=== PATIENT | female | born 1965 | race Caucasian/White ===

== ENCOUNTER 2020-08-24 19:35 | Emergency (ER) | payer OTHER ==
[~2020-08-24] VITALS: Ht 147.3 cm; Wt 53.2 kg
[2020-08-24 19:46] VITALS: TEMP 97.8
[2020-08-24 20:17] LABS: BASO # 0.1 (0.0-0.2); BASO % 1.2 % (0.0-2.0); EOS # 0.1 (0.0-0.7); EOS % 0.8 % (0-4.0); GRAN % 52.7 % (42.2-75.2); HEMATOCRIT 41.2 % (37.0-47.0); HEMOGLOBIN 13.2 g/dl (12.5-16.0); LYMPH # 3.5 (1.2-3.4); LYMPH % 36.9 % (20.0-51.0); MEAN CELL VOLUME 90 fl (80.0-100.0); MEAN CORPUSCULAR HEMOGLOBIN 29 pg (27.0-31.0); MEAN CORPUSCULAR HGB CONC 32 g/dl (33.0-37.0); MEAN PLATELET VOLUME 10.2 fl (7.4-10.4); MONO # 0.8 (0.1-0.6); MONO % 8.2 % (1.7-9.3); PLATELET COUNT 416 K/mm3 (130-400); RED BLOOD COUNT 4.59 M/mm3 (4.10-5.30); REDCELL DISTRIBUTION WIDTH-CV 12.5 % (11.5-14.5)
[2020-08-24 20:23] LABS: PROTHROMBIN TIME 11.4 SECONDS (9.7-12.8)
[2020-08-24 20:28] LABS: ALANINE AMINOTRANSFERASE 17 U/L (4-34); ALBUMIN 4.6 gm/dL (3.5-5.0); ALKALINE PHOSPHATASE 81 U/L (50-136); ANION GAP 9 mmol/L (7-16); AST,SGOT 29 U/L (15-37); BILIRUBIN,TOTAL 0.6 mg/dL (0.0-1.0); BLOOD UREA NITROGEN 19 mg/dL (7-17); CALCIUM 9.9 mg/dL (8.4-10.2); CARBON DIOXIDE 28 mmol/L (22-30); CHLORIDE 99 mmol/L (98-107); CREATININE, serum 0.91 (0.52-1.25); GLUCOSE 99 mg/dL (74-106); LIPASE 165 U/L (23-300); POTASSIUM 3.8 mmol/L (3.4-5.0); SODIUM 137 mmol/L (137-145); TOTAL PROTEIN 7.8 gm/dL (6.4-8.2)
[2020-08-24 20:35] LABS: D-DIMER < 200.00 ng/mLDDu (200-230)
[2020-08-24 20:39] LABS: TROPONIN-I < 0.012 ng/mL (0.000-0.035)
[2020-08-24] MEDS ORDERED: PRINIVIL5 MG PO (20:47)
[2020-08-24] MEDS ORDERED: HCTZ 25MG TAB25 MG PO (20:48)
[2020-08-24] MEDS ORDERED: KLOR-CON SPRIN10 MEQ PO (20:48)
[2020-08-24] MEDS ORDERED: SYNTHROID0.05 MG/TA PO (20:50)
[2020-08-24] MEDS ORDERED: ATIVAN 0.50.5 MG/TAB PO (20:51)
[2020-08-25 00:13] VITALS: BP 106/72; PULSE 91
== END 2020-08-25 00:13 | disposition home or self-care (01) ==
LOC: COL.ER 19:35
PROVIDERS: Emergency Medicine
DX: R07.9 Chest pain, unspecified (principal); I10 Essential (primary) hypertension; E03.9 Hypothyroidism, unspecified; Z82.49 Family history of ischemic heart disease and other diseases of the circulatory system; Z88.2 Allergy status to sulfonamides; Z88.8 Allergy status to other drugs, medicaments and biological substances; Z79.890 Hormone replacement therapy
CPT/HCPCS: J7030; Q9967